=== PATIENT | male | born 1965 | race Caucasian/White ===

== ENCOUNTER 2019-07-27 23:14 | Inpatient (IN) | payer OTHER ==
[~2019-07-27] VITALS: Ht 167.6 cm; Wt 96.2 kg
[~2019-07-27 23:14] MED LIST: CYMBALTA30 MG PO; FLEXERIL PO; GLUCOPHAGE500 MG PO; LISINOPRIL20 MG PO; ULTRAM 50MG TAB50 MG PO; VITAMIN D-32000 UNIT PO; XANAX 0.25 MG0.25 MG PO
[2019-07-27 23:20] VITALS: BP 159/99
[2019-07-27 23:39] LABS: ABSOLUTE EOSINOPHILS 0.2 thou/uL (0.0-0.7); ABSOLUTE LYMPHOCYTES 4.7 thou/uL (0.8-5.3); ABSOLUTE MONOCYTES 0.9 thou/uL (0.0-1.2); ABSOLUTE NEUTROPHILS 3.1 thou/uL (1.6-8.1); BASOPHILS 0.2 %; EOSINOPHILS 2.8 %; HEMATOCRIT 39.8 % (42.0-52.0); HEMOGLOBIN 14.1 gm/dL (14.0-18.0); LYMPHOCYTES 52.1 %; MCH 29.8 pg (26.0-34.0); MCHC 35.4 g/dL (28.0-37.0); MCV 84.3 fL (80.0-100.0); MONOCYTES 9.9 %; MPV 8.3 fl. (7.2-11.1); NUCLEATED RBCS 0 /100WBC; PLATELET COUNT* 313 thou/uL (150-400); RBC 4.72 mil/uL (4.50-6.00); RDW-CV 13.9 % (10.5-14.5)
[2019-07-27 23:43] LABS: CALCIUM 9.4 mg/dL (8.5-10.1); CREATININE 1.2 mg/dL (0.6-1.3); POTASSIUM 3.3 mmol/L (3.5-5.1)
[2019-07-27 23:47] LABS: APTT 23.2 Seconds (25.0-31.3); INR 0.9; PROTIME 9.6 Seconds (9.20-11.50)
[2019-07-27 23:50] VITALS: BP 159/99
[2019-07-27 23:54] LABS: ALBUMIN 4.1 g/dL (3.4-5.0); MAGNESIUM 2.2 mg/dL (1.8-2.4); TOTAL BILIRUBIN 0.3 mg/dL (<0.1-1.0); TOTAL PROTEIN 7.5 g/dL (6.4-8.2)
[2019-07-28] VITALS (11 sets, daily range): BP systolic 121–191; BP diastolic 75–112
[2019-07-28 00:24] LABS: SGOT 39.6 U/L (15-37)
--- NOTE | 2019-07-28 03:08 | NUR ---
ADMITTED TO ICU BED 1 AT 0120 FROM RANGE SCIENTIST, SEE ASSESSMENTS. PT DENIES CHEST PAIN, NAUSEA, SOA, AND ANY OTHER DISCOMFORT. R GROIN CATH SITE DRESSING INTACT, SMALL AMT FRESH BLOOD NOTED WITH NO CHANGE SINCE ARRIVAL TO UNIT. RLE DISTAL SENSATION INTACT, 2+ DISTAL PULSES. PT INSTRUCTED ON IMMOBILIZATION, CALL LIGHT USE, AND TO NOTIFY RN IMMEDIATELY IF CHEST PAIN RECURS, VERBALIZED UNDERSTANDING. PT SLEEPING AT THIS TIME, HOME CPAP IN USE. VSS. ANGIOMAX GTT INFUSING ORDERED, TO BE DC'D AT 0500. CALL LIGHT WITHIN REACH.
[2019-07-28 04:30] LABS: HEMATOCRIT 38.8 % (42.0-52.0); HEMOGLOBIN 13.2 gm/dL (14.0-18.0); MCH 29.1 pg (26.0-34.0); MCHC 34.1 g/dL (28.0-37.0); MCV 85.5 fL (80.0-100.0); MPV 8.2 fl. (7.2-11.1); RBC 4.54 mil/uL (4.50-6.00); RDW-CV 14.1 % (10.5-14.5); WBC 9.8 thou/uL (4.0-11.0)
[2019-07-28 04:53] LABS: ANION GAP 9 mmol/L (7-16); BUN 15 mg/dL (7-18); CALCIUM 8.8 mg/dL (8.5-10.1); CHLORIDE 102 mmol/L (98-107); CHOLESTEROL 302 mg/dL (<200); CO2 26 mmol/L (21-32); CREATININE 0.9 mg/dL (0.6-1.3); GLUCOSE 120 mg/dL (70-99); HDL CHOLESTEROL 26 mg/dL (>40); POTASSIUM 4.1 mmol/L (3.5-5.1); SODIUM 137 mmol/L (136-145); TC:HDL 11.6 Ratio (Not establshd); TRIGLYCERIDE 784 mg/dL (<150); VLDL 157 mg/dL (<40)
[2019-07-28 05:01] LABS: LDL CHOLESTEROL ND mg/dL (<100); SERUM ASSESSMENT Clear
[2019-07-28 05:03] LABS: TROPONIN-I LEVEL > 200.00 ng/mL (<0.06)
--- NOTE | 2019-07-28 06:12 | NUR ---
SLOW OOZING OF BLOOD AT R GROIN SITE INCISION SINCE ARRIVAL TO ICU, NO HEMATOMA. DRESSING CHANGED AT 0515 WITH MINIMAL OOZING SINCE. ANGIOMAX GTT DC'D AT [address] GODDARD ORDER. PT HAS REPORTED 1/10 CHEST DISCOMFORT INTERMITTENTLY, DENIES RADIATION OF PAIN, SOA, NAUSEA, AND ANY OTHER SYMPTOMS. CALL LIGHT WITHIN REACH.
--- NOTE | 2019-07-28 10:30 | NUR ---
RESTING IN BED. AT BEDSIDE. HE SAID HE WAS GLAD HE CAME TO THE HOSPTIAL WHEN HE DID. HE LIVES WITH HIS . 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 HE SAID HE IS UNDER STRESS AT WORK. DOES NOT SMOKE. NO USE OF DME BESIDES CPAP AT NIGHT. CPAP FROM HOME IS IN ROOM. IS INDEPENDENT. STATED HE HASA TO GO TO [facility] FOR HIS INSURANCE. SEES A SURVEYING CREW RODMAN THAT HE THINKS NAME IS GEOVANI WINKLER. 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 IS NOW TELE STATUS. CM WILL FOLLOW.
--- NOTE | 2019-07-28 11:27 | CARD ---
[address] [address] CARDIAC CATH REPORT Name: EDDIE BRITT JR Room: [address] IN [facility]#: [id number] Admission: 07/28/19 Attend Phys: Kirby Carcamo MD, Discharge: Date of : 63 Report #: [id number] THIS REPORT FOR: //name// APPROVED REPORT Study performed: 07/27/2019 23:30:55 Patient Details The patient is a 53 year-old male Event Personnel Kirby Carcamo Professor Of Geology, Sofy Wild RN Egg Breaking Machine Operator, Brad Tipton CLERICAL ORDER FILLER Scrub, Payton Almaraz RTR Monitor Procedures Performed Art Access - R femoral artery Left Heart Cath w/or w/o Coronaries [facility] Place w/wo Plasty Single LAD Hemostasis w/ Angioseal Indication STEMI Risk Factors Obesity, Family History, Hypercholesterolemia, Hypertension Admission/Lab Medications/Medications given during procedure Angiomax bolus and infusion Procedure Narrative The patient was brought emergently to the Cardiac Catheterization Laboratory and was prepped and draped in a sterile manner. The right femoral was infiltrated with 2% Lidocaine subcutaneous anesthesia. A [place] 6 FR sheath was inserted into the right femoral artery. Coronary angiography was performed using coronary diagnostic catheters. The right coronary system was accessed and visualized with a JR 4 6F catheter. The left coronary system was accessed and visualized with a JL 4 6F catheter. The left ventricle was accessed and visualized with a PIG 6F catheter. Left ventricular/Aortic Valve gradient assessed via catheter pullback. Pre-demployment femoral angiogram was performed . Closure device was deployed with a Fr Angioseal STS 6Fr. The patient tolerated the procedure well and there were no complications associated with the procedure. A hematoma occurred. [place] [address] CARDIAC CATH REPORT Name: EDDIE BRITT JR Room: [address]#: [id number] Admission: 07/28/19 Attend Phys: Kirby Carcamo MD, Discharge: Date of : 63 Report #: [id number] Intraoperative Conscious Sedation Sedation start time: 2 Case end Time: 54 Fentanyl 50 mcg Versed 3 mg Fluoro Time: 15.2 minutes Dose: DAP [id number] cGycm2 2289 mGy Contrast Type and Amount: Visipaque 210 ml Coronary Angiography The patient's coronary anatomy is left dominant. Diagnostic Cath Left Main 0% narrowing LAD 100% mid vessel occlusion with prominent intraluminal thrombus Circumflex 40% narrowing of the proximal portion of the first marginal branch of the dominant circumflex Right Coronary Small nondominant vessel with 60% proximal narrowing Hemodynamics The aortic pressure is 154/72 mmHg with a mean of 95 mmHg. The left ventricular pressure is 131/14 mmHg with a mean of mmHg. The left ventricular end diastolic pressure is 26 mmHg. There was no gradient across the aortic valve upon pullback. PCI Technique Lesion Anticoagulation was achieved with Angiomax. Patient was preloaded with Angiomax. Percutaneous coronary intervention was performed on the mid left anterior descending artery segment. The lesion stenosis prior to intervention was 100% with KIMBERLY 0 flow. A EBU 3.5 LAUNCHER 6F Guide Catheter was used to engage the left ostium. A IG: ProwaterFlex 180CM Interventional Guidewire was used to cross the lesion. BALLOON DILATION A Balloon catheter Trek RX 2.5 X 12 was inserted and inflated up to 12.00atm for 6seconds. Additional Inflation: 12.00atm for 10seconds. Additional Inflation: 16.00atm for 10seconds. STENT DEPLOYMENT A drug-eluting stent Biotronik Orsiro 3.0 x 26, 3.0x9 was inserted and inflated up to 10.00atm for 14seconds. Additional Inflation: 11.00atm for 9seconds. Biotronik Orsiro 3.0 x 9 inflated for 8 sec @ 10 linda, 5 sec @ 12 linda, and 6 sec @ 11 [place] [address] CARDIAC CATH REPORT Name: EDDIE BRITT JR Room: [address] IN M.R.#: [id number] Admission: 07/28/19 Attend Phys: Kirby Carcamo MD, Discharge: Date of : 63 Report #: [id number] POST STENT DEPLOYMENT BALLOON DILATION A Balloon catheter NC Trek RX 3.0 X 12 was inserted and inflated up to 14.00atm for 4seconds. Additional Inflation: 16.00atm for 7seconds. Additional Inflation: 17.00atm for 7seconds. Final angiography reveals 10 % stenosis with KIMBERLY 3 flow. Conclusion #[address] segment elevation myocardial infarction #2 significant coronary artery disease characterized by the following: A 100% mid LAD occlusion with prominent intraluminal thrombus B dominant circumflex with 40% narrowing of the first marginal branch C 60% narrowing of the proximal portion of the small nondominant right coronary artery #3 moderately severe elevation of left ventricular end-diastolic pressure at rest #4 successful percutaneous coronary intervention with deployment of sequential drug-eluting stents at the site of 100% mid LAD occlusion with 10% residual narrowing no residual thrombus and KIMBERLY-3 flow to the distal vessel Recommendations Cardiac Risk Reduction Program Aggressive Medical Therapy Medications Administered Aspirin (any) Prasugrel Diagnostic Cath Approved by: Kirby Carcamo MD Date/Time: 07/28/2019 11:24:51 <ELECTRONICALLY SIGNED> By: Kirby Carcamo MD, [facility] 07/28/19 1126 1126 [id number] Carcamo MD, FACC /INF
--- NOTE | 2019-07-28 12:17 | 2DMMODE ---
[place] [address] 2 D/M-MODE ECHOCARDIOGRAM Name: EDDIE BRITT JR Room: [facility] IN [facility]#: [id number] Admission: 07/28/19 Attend Phys: Eze Sam Discharge: Date of : 63 Date of Service: 07/28/19 1216 Report #: [id number] THIS REPORT FOR: //name// APPROVED REPORT Study performed: 07/28/2019 09:54:16 EXAM: Comprehensive 2D, Doppler, and color-flow Echocardiogram Patient Location: In-Patient Room #: [facility][note 3] Status: routine BSA: 2.02 HR: 77 bpm BP: 151/99 mmHg Rhythm: NSR Other Information Study Quality: Good Indications Acute NV 2D Dimensions IVSd: 11.54 (7-11mm) LVOT Diam: 21.76 (18-24mm) LVDd: 49.42 mm PWd: 10.25 (7-11mm) Ascending Ao: 32.64 (22-36mm) LVDs: 40.98 (25-40mm) Aortic Root: 35.13 mm Volumes Left Atrial Volume (Systole) LA ESV Index: 26.60 mL/m2 Aortic Valve AoV Peak Wilder.: 1.61 m/s AO Peak Gr.: 10.41 mmHg LVOT Max P.59 mmHg AO Mean Gr.: 5.46 mmHg LVOT Mean P.15 mmHg LVOT Max V: 1.07 m/s AO V2 VTI: 26.83 cm LVOT Mean V: 0.67 m/s TOÑO (VTI): 2.83 cm2 LVOT V1 VTI: 20.41 cm Mitral Valve E/A Ratio: 1.06 MV Decel. Time: 155.40 ms MV E Max Wilder.: 0.81 m/[place] [address] 2 D/M-MODE ECHOCARDIOGRAM Name: EDDIE BRITT JR Room: [address] IN .R.#: [id number] Admission: 07/28/19 Attend Phys: Eze Sam Discharge: Date of : 63 Date of Service: 07/28/19 1216 Report #: [id number] MV PHT: 45.06 ms MVA (PHT): 4.88 cm2 TDI E/Lateral E': 9.00 E/Medial E': 10.13 Medial E' Wilder.: 0.08 m/s Lateral E' Wilder.: 0.09 m/s Pulmonary Valve PV Peak Wilder.: 0.89 m/s PV Peak Gr.: 3.14 mmHg Tricuspid Valve RAP Estimate: 5.00 mmHg TR Peak Gr.: 27.11 mmHg RVSP: 32.00 mmHg PA Pressure: 32.00 mmHg Left Ventricle The left ventricle is normal size. Regional wall motion abnormalities are noted with distal septal and anteroapical hypo-akinesis. There is normal left ventricular wall thickness. Left ventricular systolic function is moderately decreased. LVEF is 40%. Grade I - abnormal relaxation pattern. Right Ventricle The right ventricle is normal size. The right ventricular systolic function is normal. Atria The left atrium size is normal. The right atrium size is normal. Aortic Valve Mild aortic valve sclerosis. No aortic regurgitation is present. There is no aortic valvular stenosis. Mitral Valve The mitral valve is normal in structure. Trace mitral regurgitation. No evidence of mitral valve stenosis. Tricuspid Valve The tricuspid valve is normal in structure. Mild tricuspid regurgitation. Mild pulmonary hypertension. Pulmonic Valve The pulmonary valve is normal in structure. Mild [place] [address] 2 D/M-MODE ECHOCARDIOGRAM Name: EDDIE BRITT JR Room: [address] IN [facility]#: [id number] Admission: 07/28/19 Attend Phys: Eze Sam Discharge: Date of : 63 Date of Service: 07/28/19 1216 Report #: [id number] Great Vessels The aortic root is normal in size. IVC is normal in size and collapses >50% with inspiration. Pericardium There is no pericardial effusion. <Conclusion> The left ventricle is normal size. There is normal left ventricular wall thickness. Left ventricular systolic function is moderately decreased. LVEF is 40%. Grade I - abnormal relaxation pattern. The right ventricle is normal size. The left atrium size is normal. Mild aortic valve sclerosis. No aortic regurgitation is present. There is no aortic valvular stenosis. The mitral valve is normal in structure. The tricuspid valve is normal in structure. Mild tricuspid regurgitation. Mild pulmonary hypertension. IVC is normal in size and collapses >50% with inspiration. There is no pericardial effusion. Regional wall motion abnormalities are noted with distal septal and anteroapical hypo-akinesis. <ELECTRONICALLY SIGNED> By: Kirby Carcamo MD, FACC 07/28/191215 15 15 Kirby Carcamo MD, FACC /INF
--- NOTE | 2019-07-28 16:56 | EKG ---
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
--- NOTE | 2019-07-28 16:57 | EKG ---
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 : 1965 Requested By: Kirby Carcamo Order Number: [id number] Loren MD: Kirby Carcamo Measurements Intervals [place] Rate: 76 P: 51 [place]: 190 QRS: 68 QRSD: 90 T: 34 QT: 373 QTc: 420 Interpretive Statements Sinus rhythm Probable anteroseptal infarct, recent Baseline wander in lead(s) I,II,aVR,aVF No previous ECG available for comparison Electronically Signed On 07-28-2019 16:56:56 CDT by Kirby Carcamo [email or web address] <ELECTRONICALLY SIGNED> By: Kirby Carcamo MD, [facility] 07/28/19 5330 013 013 Kirby Carcamo MD, [facility] /EPI
--- NOTE | 2019-07-28 16:58 | EKG ---
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
--- NOTE | 2019-07-28 18:45 | NUR ---
PT ARRIVED TO UNIT AT APPROX 1830, PT A&O X4, RA, VSS, ENROBER TENDER TRACING SINUS RHYTHM, C/O DULL CHEST PAIN 7/, PT RECVD PAIN MEDS PRIOR TO ARRIVAL. REPORT TAKEN FROM ICU NURSE, CLEMENTE. THIS NURSE HAS READ AND AGREES WITH PREVIOUS NURSES ASSESSMENT. PT ORIENTED TO CALL LIGHT AND ROOM.
--- NOTE | 2019-07-28 20:35 | NUR ---
I ASSUMED CARE OF THE PATIENT AT 0700. HE IS ALERT AND ORIENTED X4. BED IS IN THE LOW LOCKED POSITION AND CALL LIGHT IS IN REACH. HOURLY ROUNDING IS COMPLETED AND PATIENT NEEDS ARE MET. PAIN IS MANAGED WITH PRN MEDS. PATIENT MAINTAINED BEDREST UNTIL FEMORAL SITE WAS C/D/I. CARDIOLOGY WAS CONTACTED AND THEY UTILIZED LIDO/EPI TO STOP BLEEDING. PATIENT WAS ABLE TO MOVE AROUND AND TOLERATED FOOD AND DRINK BY LATE AFTERNOON. BED STATUS WAS DOWNGRADED. PATIENT WAS TAKEN OFF UNIT TO [facility] AND THEN WAS TRANSPORTED TO [facility] FOR TRANSFER. IS AT THE BEDSIDE. HE IS PROGRESSING TOWARD GOALS.
[2019-07-29] VITALS: BP 113/79
[2019-07-29 04:00] VITALS: BP 110/79
--- NOTE | 2019-07-29 05:59 | NUR ---
PT SLEPT MOST OF SHIFT. ASSESSMENT DOCUMENTED. MEDS GIVEN PER E-MAR. IV PATENT. PAIN MEDS GIVEN PER E-MAR WITH RELIEF. CATH SITE REMAINED C/D/I. WILL CONTINUE WITH PLAN OF CARE.
[2019-07-29 11:46] VITALS: BP 118/79
[2019-07-29 12:00] VITALS: BP 153/101
[2019-07-29] MEDS ORDERED: ZESTRIL20 MG PO (12:11)
[2019-07-29] MEDS ORDERED: CARVEDILOL12.5 MG PO (12:11)
[2019-07-29] MEDS ORDERED: EFFIENT10 MG PO (12:13)
[2019-07-29] MEDS ORDERED: NITROSTAT0.4 M1 SUBLING (12:15)
--- NOTE | 2019-07-29 15:00 | NUR ---
ASSUMED PT CARE AT 0700, PT A&O X4, VSS, LOAN PROCESSOR TRACING SINUS RHYTHM, CATH SITE TO RIGHT GROIN COVERED, DRESSING IS CLEAN, DRY, AND INTACT, FULL ASSESSMENT CHARTED. PT DISCHARGED FROM UNIT WITH AT APPROX 1445, EDUCATED ON ALL DISCHARGE INSTRUCTIONS INCLUDING MEDICATIONS AND FOLLOW UP APPOINTMENTS. IV AND LOAN PROCESSOR REMOVED, HOURLY ROUNDING COMPLETED.
--- NOTE | 2019-07-29 18:13 | EKG ---
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
--- NOTE | 2019-07-30 14:12 | H ---
[address] [address] HISTORY AND PHYSICAL Name: EDDIE BRITT JR Room: [address]#: [id number] Admission: 07/28/19 Attend Phys: Kirby Carcamo MD, Discharge: 07/29/19 Date of : 63 Report #: [id number] THIS REPORT FOR: //name// CC: YAN physician/PCP Kirby Carcamo DATE OF SERVICE: 07/27/2019 HISTORY OF PRESENT ILLNESS: The patient is a pleasant 53-year-old male who developed severe chest discomfort during sex this evening. It persisted and he ultimately sought assistance in the [facility] Emergency Room. EKG en route and in the ER suggested acute anterior wall ST segment elevation myocardial infarction. The patient has borderline diabetes, weight excess, hypercholesterolemia and hypertension. Medicines at home have included lisinopril and metformin. He has been statin intolerant. He denies pain similar to this at any time in the past and there is no history of antecedent myocardial infarction. He denies cigarette use. PHYSICAL EXAMINATION: GENERAL: Demonstrates an acutely distressed, overweight middle-aged male. VITAL SIGNS: Blood pressure 130/90, pulse rate is 84, respirations are 18 per minute. NECK: Jugular venous pressure is normal. CHEST: Clear. CARDIAC: Reveals normal first and second heart sounds with an S4 gallop. ABDOMEN: Moderately obese. EXTREMITIES: Without edema with intact femoral, pedal and radial pulses. DIAGNOSTIC DATA: EKG, en route demonstrated acute anterior wall injury. EKG in the ER revealed marked peaking of the T-waves suggesting hyperacute anterior injury. IMPRESSION: 1. Acute anterior wall ST-segment elevation myocardial infarction. 2. Hypertension. 3. Hypercholesterolemia. 4. Borderline diabetes. 5. Weight excess. RECOMMENDATIONS: 1. Aspirin, heparin [place] [address] HISTORY AND PHYSICAL Name: EDDIE BRITT JR Room: [address]#: [id number] Admission: 07/28/19 Attend Phys: Kirby Carcamo MD, Discharge: 07/29/19 Date of : 63 Report #: [id number] 2. We would recommend acute catheterization with strong consideration of percutaneous coronary intervention continue on the results of the study. The patient is going to the ICU on 07/28/2019. This is 35 minutes of critical care time from 1235 to 1310 on 07/28/2019. <ELECTRONICALLY SIGNED> By: Kirby Carcamo MD, FACC 07/30/19 1412 0115 0251Kirby Carcamo MD, FACC /nt
--- NOTE | 2019-07-30 14:13 | D ---
[address] [address] DISCHARGE SUMMARY Name: EDDIE BRITT JR Room: [address]#: [id number] Admission: 07/28/19 Attend Phys: Kirby Carcamo MD, Discharge: 07/29/19 Date of : 63 Report #: [id number] THIS REPORT FOR: //name// CC: YAN physician/PCP Kirby Carcamo DATE OF SERVICE: 07/29/2019 FINAL DISCHARGE DIAGNOSES: 1. Acute anterior wall ST segment elevation myocardial infarction. 2. Coronary artery disease. 3. Status post percutaneous coronary intervention to the left anterior descending. 4. Hypertension. 5. Hyperlipidemia. 6. Borderline diabetes. 7. Exogenous obesity. PROCEDURES: 07/28/2019 -- Left heart catheterization, selective coronary arteriography and percutaneous coronary intervention with deployment of sequential drug-eluting stents at the site of 100% mid LAD occlusion. HOSPITAL COURSE: The patient is a very pleasant 53-year-old male who developed chest pain during intercourse in the evening of 07/27/2019. It persisted and he sought assistance in the [facility] Emergency Room. EKG there suggested acute anterior wall injury and the patient had persistent chest pain. His systemic pressure was normal and heart rate was normal. No significant arrhythmias were noted. Risk factors include hypertension, hypercholesterolemia, borderline diabetes and a family history of premature coronary disease. In that context, I performed an emergent catheterization that defined total occlusion of the mid LAD. I deployed 2 drug-eluting stents in the mid LAD with a 10% residual narrowing and KIMBERLY 3 flow to the distal vessel. Troponin with early washout chris to a value of greater than 200. Echocardiogram on 07/28 revealed an ejection fraction of 40% with anterolateral hypo to akinesis with remaining segments doc normally. He received dual antiplatelet therapy, DAVID inhibition and beta-blockade. He had been statin intolerant with marked myalgias with multiple statins and thus statins were not utilized. The plan is to utilize PCSK9 inhibition. He did well in the hospital and was able to ambulate without difficulty with good hemostasis at the right femoral site of catheterization. Laboratory on 07/28; sodium 137, potassium 4.1, BUN 15, creatinine 0.9, hemoglobin 13.2, [place] [address] DISCHARGE SUMMARY Name: EDDIE BRITT JR Room: [address]#: [id number] Admission: 07/28/19 Attend Phys: Kirby Carcamo MD, Discharge: 07/29/19 Date of : 63 Report #: [id number] blood cell count 9800, platelets 247,000. Troponin chris to a value greater than 200. Lipids revealed cholesterol 302, triglycerides 784, LDL not calculable, HDL 26. The patient was discharged to home on the following medications: Alprazolam 0.25 mg daily on a p.r.n. basis for anxiety, aspirin 81 mg daily, carvedilol 6.25 mg b.i.d., vitamin D3 or cholecalciferol 2000 units daily, Cymbalta 30 mg daily, lisinopril 20 mg daily, metformin 500 mg daily to be resumed on 07/30, prasugrel or Effient 10 mg daily, tramadol 50 mg q. 4 to 6 hours p.r.n. pain, and p.r.n. sublingual nitroglycerin. He is scheduled to return to see my nurse practitioner in 7 to 10 days and myself in 6 to 8 weeks with a followup echocardiogram at that juncture. Of note, echocardiogram in the hospital demonstrated ejection fraction of approximately 40% with anterolateral hypo to akinesis with remaining segments doc normally. Therefore, the patient is discharged to home in stable condition on the aforementioned medications with followup as iterated above. <ELECTRONICALLY SIGNED> By: Kirby Carcamo MD, FACC 07/30/19 1413 1058 1128Jojd Carcamo MD, FACC /nt
== END 2019-07-29 14:48 | disposition home or self-care (01) | DRG 247 ==
LOC: M.ERS 23:14 → M.TBA-CV 07-28 01:03 → M.ICU 07-28 01:03 → M.2W 07-28 18:43
PROVIDERS: Emergency Medicine Emergency Medical Services; ADMIT Internal Medicine
DX: I21.09 ST elevation (STEMI) myocardial infarction involving other coronary artery of anterior wall (principal); K57.90 Diverticulosis of intestine, part unspecified, without perforation or abscess without bleeding; I10 Essential (primary) hypertension; F32.9 Major depressive disorder, single episode, unspecified; F41.9 Anxiety disorder, unspecified; I25.10 Atherosclerotic heart disease of native coronary artery without angina pectoris; E78.5 Hyperlipidemia, unspecified; R73.03 Prediabetes; E66.09 Other obesity due to excess calories; E78.00 Pure hypercholesterolemia, unspecified; Z23 Encounter for immunization; Z88.6 Allergy status to analgesic agent; Z82.49 Family history of ischemic heart disease and other diseases of the circulatory system; Z68.34 Body mass index [BMI] 34.0-34.9, adult